=== PATIENT | female | born 1965 | race Caucasian/White ===

== ENCOUNTER 2016-10-03 07:07 | Emergency (ER) | payer OTHER ==
--- NOTE | 2016-10-09 23:42 | ER ---
ADMIT: 10/03/2016 RM/LOC: ER [facility] MR#: [id number] [address] [id number] RENNY ARELLANO [address] [place] [address] Emergency Room Report SEX: F AGE: 51 : 1965 DATE: 10/03/2016 TIME: 0707 hours. Please refer to my T-sheet for complete H and P. HISTORY OF PRESENT ILLNESS: Briefly, the patient is a 51-year-old, who comes in with shortness of breath. She has a history of asthma. Does not smoke, but she states that she has had a cold for the last couple days, and her asthma is getting worse. PHYSICAL EXAMINATION: VITAL SIGNS: Blood pressure 114/71, pulse 81, respirations 16, temp 96.2, sats 92%. GENERAL: No acute distress. HEENT: Mild rhinorrhea. LUNGS: Decreased breath sounds throughout with expiratory wheezes. HEART: Regular. ABDOMEN: Soft. SKIN: No rash. EMERGENCY DEPARTMENT COURSE: Chest x-ray revealed no obvious infiltrate. EKG was sinus rhythm, rate 69, no changes. She was given Decadron 20 IM, two [place] 5 p.o., a DuoNeb. She is feeling better and ready for discharge. ASSESSMENT: 1. Acute asthmatic exacerbation. 2. Bronchitis. PLAN: Z-Alex, prednisone 20 b.i.d. for 5 days. Return if worse. Follow up with [facility] this week. Young Kessler MD/ dana JOB #: [id number] CC: Yuong Kessler MD, Attending Physician Dior Bentley MD
== END 2016-10-03 09:05 | disposition home or self-care (01) ==
LOC: ER 07:07
DX: J45.901 Unspecified asthma with (acute) exacerbation (principal); I48.91 Unspecified atrial fibrillation